=== PATIENT | female | born 1970 | race Two or more races ===

== ENCOUNTER 2022-10-27 15:08 | Emergency (ER) | payer OTHER ==
[~2022-10-27] VITALS: Ht 172.7 cm; Wt 106.6 kg
[2022-10-27] MEDS ORDERED: METHYLPREDNISOLO4 M1 PO (16:09)
[2022-10-27] MEDS ORDERED: DOXYCYCLINE HY100 MG PO (16:09)
[2022-10-27] MEDS ORDERED: DILTIAZEM ER120 MG PO (16:09)
[2022-10-27] MEDS ORDERED: BUPROPION XL150 MG PO (16:09)
[2022-10-27] MEDS ORDERED: BUMETANIDE1 MG PO (16:09)
[2022-10-27] MEDS ORDERED: PANTOPRAZOLE SO40 MG PO (16:10)
== END 2022-10-27 21:06 | disposition home or self-care (01) ==
LOC: ER 15:08
DX: R31.9 Hematuria, unspecified (principal); Z88.8 Allergy status to other drugs, medicaments and biological substances